=== PATIENT | male | born 1975 | race Caucasian/White ===

== ENCOUNTER 2023-02-24 11:34 | Emergency (ER) | payer BC ==
[2023-02-24 12:15] LABS: BASOPHILS ABSOLUTE AUTO 0.1 K/mm3 (0.0-0.2); BASOPHILS PERCENT AUTO 0.7 % (0.0-1.0); EOSINOPHILS ABSOLUTE AUTO 0.4 K/mm3 (0.0-0.4); EOSINOPHILS PERCENT AUTO 3.5 % (0.0-6.0); HEMATOCRIT 43.1 % (42.0-52.0); HEMOGLOBIN 15.2 gm/dl (14.0-18.0); IMMATURE GRAN PERCENT AUTO 0.8 % (0.0-0.4); LYMPHOCYTES ABSOLUTE AUTO 1.8 K/mm3 (1.0-4.8); MEAN CORPUSCULAR HEMOGLOBIN 31.1 pg (28.0-32.0); MEAN CORPUSCULAR HGB CONC 35.3 g/dl (32.0-36.0); MEAN CORPUSCULAR VOLUME 88.1 fl (83.0-99.0); MEAN PLATELET VOLUME 10.1 fl (9.4-12.4); MONOCYTES ABSOLUTE AUTO 0.9 K/mm3 (0.0-0.8); NEUTROPHILS ABSOLUTE AUTO 8.8 K/mm3 (1.8-7.7); PLATELET COUNT,PLT 171 K/mm3 (150-400); RED BLOOD CELL COUNT 4.89 M/mm3 (4.52-5.90); WHITE BLOOD CELL COUNT,WBC 12.06 K/mm3 (3.9-11.3)
[2023-02-24] MEDS ORDERED: Sodium Chloride 0.9% 1,000 ML IV ONE (12:15)
[2023-02-24] MEDS ORDERED: Sodium Chloride 0.9% 1,000 ML IV SCH (12:15)
[2023-02-24 12:40] LABS: A/G RATIO 1.2 (1-2); ALBUMIN 3.7 g/dl (3.4-5.0); ANION GAP 13.3 (5-15); BILIRUBIN TOTAL 0.5 mg/dL (0.2-1.0); BUN/CREATININE RATIO 13.8 (14-18); CALCIUM 9.3 mg/dL (8.5-10.1); CREATININE 1.3 mg/dL (0.7-1.3); EST CRCL DRUG DOSING (CG) 77.68 mL/min; POTASSIUM,K 4.3 mEq/L (3.5-5.1); PROTEIN TOTAL,TP 6.9 g/dl (6.4-8.2)
[2023-02-24 13:18] LABS: APPEARANCE,URINE CLEAR (Clear); BILIRUBIN,URINE NEGATIVE (Negative); COLOR,URINE YELLOW (Yellow); GLUCOSE,URINE NEGATIVE (Negative); KETONES,URINE NEGATIVE (Negative); LEUKOCYTE ESTERASE,URINE NEGATIVE (Negative); NITRITE,URINE NEGATIVE (Negative); OCCULT BLOOD,URINE 2+ (Negative); PH,URINE 5.5 (5.0-8.0); PROTEIN,URINE 1+ (Negative); UROBILINOGEN,URINE 0.2 (0.2-1.0)
[2023-02-24 13:26] LABS: BACTERIA,URINE FEW /hpf (FEW); EPITHELIAL CELLS,URINE 0-5 /hpf (0-5); MUCUS,URINE FEW /hpf (FEW); RBC,URINE 20-30 /hpf (0-5); WBC,URINE 0-5 /hpf (0-5)
[2023-02-24] MEDS ORDERED: Ketorolac 30 MG/ML SDV IVPUSH ONE (13:45)
[2023-02-24 14:11] VITALS: BP 158/74; PULSE 74
== END 2023-02-24 14:12 | disposition home or self-care (01) ==
LOC: JD.ED 11:34
DX: N20.0 Calculus of kidney (principal); F17.210 Nicotine dependence, cigarettes, uncomplicated; M19.90 Unspecified osteoarthritis, unspecified site; I10 Essential (primary) hypertension; Z79.82 Long term (current) use of aspirin; Z79.899 Other long term (current) drug therapy
CPT/HCPCS: 36415; 74176; 80053; 81001; 85025; 96374; 99284; J1885; J7030